=== PATIENT | female | born 1995 | race Caucasian/White ===

== ENCOUNTER 2022-08-01 13:34 | Emergency (ER) | payer MEDICAID ==
[~2022-08-01] VITALS: Ht 154.9 cm; Wt 70.0 kg
[2022-08-01 13:40] VITALS: BP 111/71
[2022-08-01 15:19] LABS: CLARITY URINE CLEAR (CLEAR); COLOR URINE YELLOW (YELLOW); KETONES URINE NEGATIVE (NEGATIVE); LEUKOCYTE ESTERASE URINE NEGATIVE (NEGATIVE); NITRITE URINE NEGATIVE (NEGATIVE); OCCULT BLOOD URINE NEGATIVE (NEGATIVE); PROTEIN URINE NEGATIVE (NEGATIVE); SPECIFIC GRAVITY URINE 1.016 (1.005-1.030); UROBILINOGEN URINE 0.2 E.U./dL (0.2-1.0)
[2022-08-01 15:23] LABS: BASOPHILS % 0.5 % (0.0-2.0); EOSINOPHILS % 2.7 % (0.0-5.0); HEMATOCRIT. 37.9 % (36.0-48.0); HEMOGLOBIN. 12.5 g/dL (12.0-16.0); LYMPHOCYTES % 40.9 % (20.0-50.0); MEAN CORPUSCULAR HEMOGLOBIN 25.4 pg (28.0-32.0); MEAN CORPUSCULAR VOLUME 77.2 fL (81.0-99.0); MEAN PLATELET VOLUME 8.3 fl (7.4-10.4); MONOCYTES % 6.4 % (2.0-8.0); NEUTROPHILS % 49.5 % (40.0-76.0); PLATELET 260 x1000/uL (130-400); RED BLOOD CELL COUNT 4.92 mill/uL (4.2-5.4)
[2022-08-01 15:31] LABS: CHLORIDE 105 mEq/L (98-107)
[2022-08-01 15:54] LABS: HCG SCREEN NEGATIVE
[2022-08-01] MEDS ORDERED: KETOROLAC 60MG/2ML VIAL IM STA (16:42)
[2022-08-01] MEDS ORDERED: NAPR-681 PO (18:32)
== END 2022-08-01 19:26 | disposition home or self-care (01) ==
LOC: ER 14:55
DX: N83.202 Unspecified ovarian cyst, left side (principal); N83.201 Unspecified ovarian cyst, right side; R10.2 Pelvic and perineal pain
CPT/HCPCS: 36415; 76830; 76856; 80053; 81003; 81025; 84703; 85025; 96372; 99285; J1885; Z7610